=== PATIENT | male | born 1995 | race American Indian/Alaskan Native ===

== ENCOUNTER 2017-05-10 14:41 | Outpatient (CLI) | payer OTHER ==
--- NOTE | 2017-05-10 16:27 | Magnetic Resonance Report ---
MRI LOWER EXTREMITY JOINT LEFT ANKLE WITHOUT CONTRAST INDICATION: Achilles tendon injury, left ankle. COMPARISON: None similar at this institution. FINDINGS: Noncontrast multiplanar and multisequence MRI of the left ankle demonstrates a high-grade, near-complete thickness tear of the Achilles tendon approximately 6.5 cm above its calcaneal attachment with surrounding edema/fluid signal. Stippled appearance to the tendon noted secondary to hemorrhage and edema its fibers. Diffusely convex anterior tendon margin noted with AP thickness of approximately 10 mm. Edema signal/swelling at the ankle also seen as along lateral aspect of the foot. Small ankle joint effusion anteriorly also seen. Normal sinus tarsi signal. Intact bones without evidence of marrow edema. CONCLUSION: Near-complete or even complete thickness of the Achilles tendon with edema and few other incidental findings, as above. I phoned the above results to Ms. Juan NP, 4 PM, 05/02/2017. Thank you for the opportunity to participate in this patient's care.
== END 2017-05-10 14:42 | disposition home or self-care (01) ==
LOC: MRI 14:41
PROVIDERS: ATTEND General Practice
DX: S86.002A Unspecified injury of left Achilles tendon, initial encounter (principal); X58.XXXA Exposure to other specified factors, initial encounter; Y93.89 Activity, other specified; Y92.89 Other specified places as the place of occurrence of the external cause; Y99.8 Other external cause status
CPT/HCPCS: 73721

== ENCOUNTER 2017-05-20 10:27 | Day surgery (SDC) | payer OTHER ==
[~2017-05-20 10:27] MED LIST: ANCEF/STERILE WATER 2 GM/20 ML IV NR; LACTATED RINGERS 1,000 ML IV SCH; NEURONTIN PO NR; PEPCID PO NR; SUBLIMAZE IV ONE; VERSED IV NR
[2017-05-20] MEDS ORDERED: MARCAINE-EPI 0.5%-1:200,000 INFILTRATI ONE (10:57)
[2017-05-20] MEDS ORDERED: DECADRON ONE ×2 (10:57→11:47)
--- NOTE | 2017-05-20 10:57 | Anesthesia Consultation ---
Anesthesia Consult and Med Hx Date of service: 05/20/17 - Airway Anesthetic Teeth Evaluation: Good ROM Head & Neck: Adequate Mental/Hyoid Distance: Adequate Mallampati Class: Class II Intubation Access Assessment: Probably Good - Pulmonary Exam CTA: Yes - Cardiac Exam Cardiac Exam: RRR - Pre-Operative Health Status ASA Pre-Surgery Classification: ASA1 Proposed Anesthetic Plan: General Nerve Block: Pop - Pulmonary Hx Smoking: No Hx Sleep Apnea: No (NOEL PRE SCREEN LOW RISK) - Cardiovascular System Hx Hypertension: No - Other Systems Hx Cancer: No
--- NOTE | 2017-05-20 10:57 | Anesthesia Day of Surgery ---
Anesthesia Day of Surgery - Day of Surgery Patient Examined: Yes Patient H&P Reviewed: Yes Patient is NPO: Yes
[2017-05-20] MEDS ORDERED: DILAUDID ONE (11:47)
[2017-05-20] MEDS ORDERED: ZOFRAN ONE (11:47)
[2017-05-20] MEDS ORDERED: DIPRIVAN 10 MG/ML IV ONE (11:47)
[2017-05-20] MEDS ORDERED: XYLOCAINE MPF 2% ONE (11:47)
[2017-05-20] MEDS ORDERED: ZEMURON IV ONE (11:49)
--- NOTE | 2017-05-20 13:04 | Short Stay Summary ---
Short Stay Documentation Date of service: 05/20/17 - History H&P: obtained from office - Allergies and Medications Current Medications: Allergies No Known Allergies Allergy (Verified 05/17/17 09:07) Home Medications Medication Instructions Recorded Confirmed Last Taken Type HYDROcodone/APAP 5-325 [[place] 1 each PO Q6HR PRN 05/17/17 05/17/17 Unknown History 5/325] Active Medications Cefazolin Sodium (Ancef/Sterile Water 2 Gm/20 Ml) 2 gm IV PREOP NR Stop: 05/20/17 23:59 Celecoxib (Celebrex) 200 mg PO PREOP NR Stop: 05/20/17 23:00 Last Admin: 05/20/17 11:15 Dose: 200 mg Famotidine (Pepcid) 20 mg PO PREOP NR Stop: 05/20/17 23:00 Last Admin: 05/20/17 11:16 Dose: 20 mg Gabapentin (Neurontin) 600 mg PO PREOP NR Stop: 05/20/17 23:00 Last Admin: 05/20/17 11:15 Dose: 600 mg Lactated Ringer's (Lactated Ringers) 1,000 mls @ 75 mls/hr IV DIRECT MOISES Last Admin: 05/20/17 11:17 Dose: 75 mls/hr Midazolam HCl (Versed) 2 mg IV PREOP NR Stop: 05/20/17 23:59 Last Admin: 05/20/17 11:32 Dose: 2 mg - Brief post op/procedure progress note Date of procedure: 05/20/17 Pre-op diagnosis: left Sharon's tendon rupture Post-op diagnosis: same Procedure: open repair left Sharon's tendon rupture Anesthesia: GETA Surgeon: AYAZ CORTEZ Estimated blood loss: minimal Pathology: none Condition: stable - Hospital course Hospital course: no perioperative complications - Disposition Condition at discharge: Good Disposition: DC-01 TO HOME OR SELFCARE Short Stay Discharge Plan Follow up with: LATRICE LEON MD [Primary Care Provider] - 7 Days
[2017-05-20] MEDS ORDERED: PERCOCET 5/325 PO PRN (13:54)
[2017-05-20 15:47] VITALS: BP 130/81
--- NOTE | 2017-05-20 23:39 | Operative Report ---
PREOPERATIVE DIAGNOSIS: Left Achilles tendon rupture. POSTOPERATIVE DIAGNOSIS: Left Achilles tendon rupture. OPERATIVE PROCEDURE: Open repair, left Achilles tendon rupture. SURGEON: Esequiel Acosta M.D. ROLL OFF DRIVER: Rosita Rodriguez, certified ophthalmic assistant. ANESTHESIA: General. PREOPERATIVE ANTIBIOTICS: Ancef 2 g IV within 1 hour of skin incision. DVT PROPHYLAXIS: Open toe, thigh-high compression stockings and SCD pumps to the nonoperative right lower extremity. OPERATIVE INSTRUMENTATION: #2 Orthocord cobraided sutures for Achilles tendon repair. OPERATIVE COMPLICATIONS: None. INDICATIONS: This is a 22-year-old male who injured his left Achilles while walking down his stairs at home. The patient states he just simply missed the last two steps at which point he heard and felt a pop, located in the posterior aspect of his left Achilles, which was followed by immediate pain, swelling and difficulty bearing weight. The patient went to [facility]. He was evaluated by Emergency Room staff. X-rays were obtained. He was told that these were negative, but he likely had an ankle sprain or Achilles tendon rupture. The patient was placed into a posterior splint and discharged with a nonweightbearing status with crutches. Upon evaluation in the office after a thorough history and physical exam was performed, which was positive for a palpable defect within the left Achilles and a positive Olson test. The patient's diagnosis was discussed at length and treatment alternatives were discussed, surgical and nonsurgical including risks and benefits of both. After a long lengthy discussion, the patient opted to proceed with operative intervention. This will entail open repair of his left Achilles tendon rupture, the risks of which were discussed to include but not exclusive of infection, blood loss, nerve damage, loss of range of motion, persistent pain, recurrent re-rupture of tendon, wound healing difficulties. Again, the patient understood those risks. All his questions were answered. He wished to proceed with operative intervention. OPERATIVE PROCEDURE: The patient was seen in the preoperative holding room area at which point informed consent was reviewed and appropriate left lower extremity was identified and then marked. The patient was then brought back to the operating room and while supine on the operating stretcher general anesthesia was administered and endotracheal tube was inserted. After confirmation of adequate general anesthesia and checking for appropriate placement of the endotracheal tube, we then gently rolled the patient into the prone position. Once in the prone position, we made sure that all bony prominences were well padded. The chest rolls for the prone position were applied. The knees were well padded with egg crate. The arms were placed in neutral position and well padded as well. His head was also secured in nice neutral position. We then checked and made sure that there were no wrinkles in the compression stockings and SCD pumps were applied as well. The tourniquet was applied. Following this, the left lower extremity was then prepped and draped in the usual sterile fashion. After prepping and draping, a timeout was called. Appropriate left lower extremity was identified which again had been marked in the preop holding area. I began the procedure by first marking out the standard posterior approach to the Achilles tendon with a skin marker and was marked. The Esmarch was applied. The extremity was elevated and held in an elevated position and the tourniquet was inflated to 250 mmHg. The patient's preoperative systolic blood pressure was 135. Once the tourniquet was inflated, a #10 blade was then used for skin incision. Once through skin, blunt dissection carried out down to the peritenon. Once in the peritenon, this was sharply incised. The patient had marked fraying and rupture of the tendon. The atrophic edges which were debrided down to nice healthy remaining tissue. Neurovascular structures were protected in their entirety throughout the entire case. The wound was copiously irrigated. Once irrigated, we then sewed both the proximal as well as distal stumps of the Achilles tendon rupture with a cobraided #2 Orthocord suture in a locking [place] baseball stitch type fashion. Once the stitches were appropriately placed, ____ then reduced the rupture into an anatomically held position and then tied the suture anatomically repairing the Achilles tendon. Once it was anatomically repaired, circumferential #2 Orthocord suture was passed around it. The wound was again copiously irrigated. The tourniquet was let down, made sure there was appropriate hemostasis and once this was confirmed, the peritenon was closed with 0 Vicryl, 2-0 Vicryl was used for subcutaneous closure and then charlie were used for skin. Once completed, Adaptic, 4 x 4s, ABD, sterile Webril were applied. The dressings were then removed and then, a short leg well-padded cast with the foot in plantar flexed position was applied. Once applied, the cast was bivalved and spread and then overwrapped with an Lit wrap. The patient was then log rolled from the prone back in the supine position, was awakened from general anesthesia without complications, taken to recovery room in stable condition and standard postoperative orders were written. JOB# [id number] CONSUELO/EMEKA
== END 2017-05-20 15:30 | disposition home or self-care (01) ==
LOC: OR 10:27
PROVIDERS: ATTEND Orthopaedic Surgery
DX: S86.012A Strain of left Achilles tendon, initial encounter (principal); X58.XXXA Exposure to other specified factors, initial encounter; Y93.01 Activity, walking, marching and hiking; Y92.008 Other place in unspecified non-institutional (private) residence as the place of occurrence of the external cause; Y99.8 Other external cause status
CPT/HCPCS: 27650; 64450; 97161; J0690; J1100; J1170; J2250; J2405; J2704; J3010; J7120